=== PATIENT | male | born 1930 | race Caucasian/White ===

== ENCOUNTER → 2017-09-21 | Outpatient (CLI) | payer OTHER ==
[~2017-09-21] MED LIST: ENAL10TA PO; ENAL20TA PO; MEMA10TA PO; oxycodone PO
== END | disposition home or self-care (01) ==
LOC: WOUND 08:05
PROVIDERS: ATTEND Podiatrist Foot & Ankle Surgery
DX: L97.412 Non-pressure chronic ulcer of right heel and midfoot with fat layer exposed (principal); L97.422 Non-pressure chronic ulcer of left heel and midfoot with fat layer exposed; I10 Essential (primary) hypertension; E78.5 Hyperlipidemia, unspecified; G47.30 Sleep apnea, unspecified; M19.90 Unspecified osteoarthritis, unspecified site; F03.90 Unspecified dementia, unspecified severity, without behavioral disturbance, psychotic disturbance, mood disturbance, and anxiety; Z72.89 Other problems related to lifestyle; Z92.3 Personal history of irradiation; Z68.23 Body mass index [BMI] 23.0-23.9, adult; Z87.891 Personal history of nicotine dependence
CPT/HCPCS: 11042; 11045; G0463; WOU0463

== ENCOUNTER → 2017-09-28 | Outpatient (CLI) | payer OTHER | END | disposition home or self-care (01) | LOC: WOUND 10:55 | PROVIDERS: ATTEND Podiatrist Foot & Ankle Surgery | DX: L97.412 Non-pressure chronic ulcer of right heel and midfoot with fat layer exposed (principal); L97.422 Non-pressure chronic ulcer of left heel and midfoot with fat layer exposed; I10 Essential (primary) hypertension; E78.5 Hyperlipidemia, unspecified; G47.30 Sleep apnea, unspecified; Z85.46 Personal history of malignant neoplasm of prostate; Z87.891 Personal history of nicotine dependence | CPT/HCPCS: 11042 ==

== ENCOUNTER → 2017-10-05 | Outpatient (CLI) | payer OTHER | END | disposition home or self-care (01) | LOC: WOUND 10:48 | PROVIDERS: ATTEND Podiatrist Foot & Ankle Surgery | DX: L97.412 Non-pressure chronic ulcer of right heel and midfoot with fat layer exposed (principal); L97.422 Non-pressure chronic ulcer of left heel and midfoot with fat layer exposed; I10 Essential (primary) hypertension; E78.5 Hyperlipidemia, unspecified; G47.30 Sleep apnea, unspecified; F03.90 Unspecified dementia, unspecified severity, without behavioral disturbance, psychotic disturbance, mood disturbance, and anxiety; M19.90 Unspecified osteoarthritis, unspecified site; Z85.46 Personal history of malignant neoplasm of prostate; Z87.891 Personal history of nicotine dependence; Z72.89 Other problems related to lifestyle | CPT/HCPCS: 11042 ==

== ENCOUNTER → 2017-12-20 | Outpatient (CLI) | payer OTHER ==
[~2017-12-20] MED LIST changes: +ACET325T14 PO; +AMPI3VIA IVPB; +CHOL10003 PO; +GABA300C10 PO; +HYDR-3240 PO; +POLY17PO5 PO; +SPIR50TA2 PO
== END | disposition home or self-care (01) ==
LOC: RAD 09:08
PROVIDERS: ATTEND Family Medicine
DX: T81.4XXD Infection following a procedure, subsequent encounter (principal); Z99.2 Dependence on renal dialysis; Z47.1 Aftercare following joint replacement surgery
CPT/HCPCS: 36569; 76937; 77001; C1751

== ENCOUNTER 2019-03-13 20:32 | Emergency (ER) | payer MEDICARE, OTHER ==
[~2019-03-13] VITALS: Ht 182.9 cm; Wt 80.0 kg
[~2019-03-13 20:32] MED LIST changes: -SPIR50TA2 PO; +SPIR50TA4 PO
--- NOTE | 2019-03-13 21:20 | NUR ---
PT GAYLE LIU FROM [facility] FOR A MGL[facility]. UNKNOWN AMOUNT OF TIME ON GROUND. PT HAS A LAC TO THE BACK OF HEAD. PT REPORTS HE TRIPPED OVER THE TILE "THE FLOORS ARE SLIPPERY THERE." PT'S LEFT EYE NOT FULLY OPEN. EMS REPORTS IT IS BASELINE ACCORDING TO STAFF AT [facility]. STRONG BILATREAL EQUAL CONSTRUCTION MATERIALS TESTER NOTED. PT DOES HAVE A LEFT SIDED FACIAL DROOP. CALLED [facility] MEDICAL STAFF UNSURE IF PATIENT ALWAYS HAS ONE. NO HISTORY OF A STROKE. DR KEENAN AWARE. VS STABLE. 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 CALL LIGHT IN PLACE. WILL CONTINUE TO MONITOR.
[2019-03-13] MEDS ORDERED: LIDOCAINE-MPF 1%, 5ML INFIL ONE (21:30)
[2019-03-13 21:36] LABS: BASOPHILS # (AUTO) 0.02 x10^3/uL (0-0.1); BASOPHILS % (AUTO) 0 % (0-1); EOSINOPHILS # (AUTO) 0.23 x10^3/uL (0-0.4); EOSINOPHILS % (AUTO) 3 % (1-7); LYMPHOCYTES # (AUTO) 1.26 x10^3/uL (1-3.4); LYMPHOCYTES % (AUTO) 17 % (22-44); MD NO; MEAN CORPUSCULAR HEMOGLOBIN 29.4 pg (27.5-34.5); MEAN CORPUSCULAR HGB CONC 32.4 g/dL (33.2-36.2); MEAN CORPUSCULAR VOLUME 90.9 fL (81-97); MEAN PLATELET VOLUME 9.5 fL (7.4-10.4); MONOCYTES # (AUTO) 0.66 x10^3/uL (0.2-0.8); MONOCYTES % (AUTO) 9 % (2-9); NEUTROPHILS # (AUTO) 5.37 x10^3/uL (1.8-6.8); NEUTROPHILS % (AUTO) 71 % (42-75); PLATELET COUNT 297 x10^3/uL (130-400); RED BLOOD COUNT 4.87 x10^6/uL (4.38-5.82); RED CELL DISTRIBUTION WIDTH 14.8 % (9.4-14.8)
[2019-03-13 21:47] LABS: ANION GAP 5 mmol/L (5-15); CALCIUM 8.6 mg/dL (8.5-10.1); CHLORIDE 109 mmol/L (98-107); CREATININE 0.98 mg/dL (0.7-1.3)
[2019-03-13 21:51] LABS: TROPONIN I < 0.015 ng/mL (0.000-0.045)
--- NOTE | 2019-03-13 22:02 | NUR ---
PT BACK FROM CT AND RESTING IN ROOM. NO ACUTE DISTRESS NOTED. VS STABLE. PT WATCHING TV. CALL LIGHT IN PLACE. WILL CONTINUE TO MONITOR.
--- NOTE | 2019-03-13 22:47 | NUR ---
Pt back from MRI. Pt is watching tv. no acute distress noted. call light in place. will continue to monitor.
--- NOTE | 2019-03-13 23:57 | NUR ---
PT RESTING IN ROOM. VS STABLE. CALL LIGHT IN PLACE. WILL CONTINUE TO MONITOR.
--- NOTE | 2019-03-14 01:14 | NUR ---
REPORT CALLED INTO [facility].
[2019-03-14] MEDS ORDERED: hydrALAzine 20 MG/ML, 1ML ONE (02:26)
[2019-03-14] MEDS ORDERED: hydrALAzine 20 MG/ML, 1ML IV ONE (02:30)
[2019-03-14 02:31] VITALS: BP 170/86
--- NOTE | 2019-03-14 02:38 | NUR ---
report given to MARIA ISABEL Gallagher
--- NOTE | 2019-03-14 02:38 | NUR ---
Pt bedside report from [facility]on parkinson. This rn to assume care of pt. Pt sleeping comfortably on [place]. Awaiting [facility].
--- NOTE | 2019-03-14 03:00 | NUR ---
[facility] here to nut picker pt. Given report.
== END 2019-03-14 03:01 | disposition home or self-care (01) ==
LOC: ED 23:59
DX: S00.03XA Contusion of scalp, initial encounter (principal); I10 Essential (primary) hypertension; Z85.46 Personal history of malignant neoplasm of prostate; W01.0XXA Fall on same level from slipping, tripping and stumbling without subsequent striking against object, initial encounter; Y93.89 Activity, other specified; Y92.009 Unspecified place in unspecified non-institutional (private) residence as the place of occurrence of the external cause; Y99.8 Other external cause status
CPT/HCPCS: 36415; 70450; 70551; 71045; 72125; 80048; 82040; 83880; 84484; 85025; 93005; 99284

== ENCOUNTER 2019-04-26 17:52 | Emergency (ER) | payer MEDICARE ==
[~2019-04-26] VITALS: Ht 177.8 cm; Wt 81.0 kg
--- NOTE | 2019-04-26 18:03 | NUR ---
89 YR OLD MALE ARRIVED VIA EMS. PER REPORT PT FROM [facility] ON [address]. PT WAS FOUND ON THE FLOOR WITH APPROX 1.5 INCH LAC TO BACK OF HEAD. UNKNOWN LOC. PT HAS HX OF ALZHEIMERS AND DOES NOT REMEMBER EVENTS. PT STATES PLACE "MIKI" YEAR "2 SOMETHING" PER REPORT THIS IS PTS BASELINE. PT COOPERATIVE WITH CARE.
--- NOTE | 2019-04-26 18:09 | NUR ---
REPORT TO LUCI NICOLAS
[2019-04-26 18:44] LABS: BASOPHILS # (AUTO) 0.01 x10^3/uL (0-0.1); BASOPHILS % (AUTO) 0 % (0-1); EOSINOPHILS # (AUTO) 0.14 x10^3/uL (0-0.4); EOSINOPHILS % (AUTO) 2 % (1-7); LYMPHOCYTES # (AUTO) 1.15 x10^3/uL (1-3.4); LYMPHOCYTES % (AUTO) 14 % (22-44); MD NO; MEAN CORPUSCULAR HGB CONC 32.6 g/dL (33.2-36.2); MEAN PLATELET VOLUME 9.4 fL (7.4-10.4); MONOCYTES # (AUTO) 0.54 x10^3/uL (0.2-0.8); MONOCYTES % (AUTO) 7 % (2-9); NEUTROPHILS % (AUTO) 77 % (42-75); PLATELET COUNT 245 x10^3/uL (130-400); RED BLOOD COUNT 4.76 x10^6/uL (4.38-5.82); RED CELL DISTRIBUTION WIDTH 16.2 % (9.4-14.8)
--- NOTE | 2019-04-26 18:56 | NUR ---
PT OUT OF ROOM TO IMAGING.
[2019-04-26 19:00] LABS: ALBUMIN 3.3 g/dL (3.4-5.0); ANION GAP 7 mmol/L (5-15); CALCIUM 8.5 mg/dL (8.5-10.1); CHLORIDE 110 mmol/L (98-107)
[2019-04-26] MEDS ORDERED: LIDOCAINE-MPF 2% ,5ML SQ ONE (19:00)
--- NOTE | 2019-04-26 19:00 | NUR ---
BEDSIDE REPORT TO MARIA ISABEL MERCADO.
[2019-04-26] MEDS ORDERED: LIDOCAINE-MPF 1%, 5ML ONE (19:01)
[2019-04-26 19:02] LABS: CREATININE 0.93 mg/dL (0.7-1.3)
--- NOTE | 2019-04-26 19:09 | NUR ---
RECEIVED REPORT FROM MARIA ISABEL VERMA.
--- NOTE | 2019-04-26 19:10 | NUR ---
PT BACK FROM IMAGING.
--- NOTE | 2019-04-26 20:18 | NUR ---
wound irrigated with 500 ml NS.
--- NOTE | 2019-04-26 21:12 | NUR ---
bacitracin applied. bandaging done. report to [facility] and [facility] done. awaiting [facility] for transport.
[2019-04-26 21:14] VITALS: BP 176/102
--- NOTE | 2019-04-26 22:19 | NUR ---
[facility] here to take patient back to [facility]. NAD
== END 2019-04-26 22:23 | disposition home or self-care (01) ==
LOC: ED 19:57
DX: S06.0X0A Concussion without loss of consciousness, initial encounter (principal); S01.01XA Laceration without foreign body of scalp, initial encounter; G30.1 Alzheimer's disease with late onset; F02.80 Dementia in other diseases classified elsewhere, unspecified severity, without behavioral disturbance, psychotic disturbance, mood disturbance, and anxiety; I10 Essential (primary) hypertension; Z85.46 Personal history of malignant neoplasm of prostate; W01.0XXA Fall on same level from slipping, tripping and stumbling without subsequent striking against object, initial encounter; Y93.89 Activity, other specified; Y92.009 Unspecified place in unspecified non-institutional (private) residence as the place of occurrence of the external cause; Y99.8 Other external cause status
CPT/HCPCS: 12031; 36415; 70450; 80048; 82040; 85025; 93005; 99284; J3490